=== PATIENT | male | born 1985 | race Two or more races ===

== ENCOUNTER 2018-08-14 11:19 | Day surgery (SDC) | payer OTHER ==
[2018-08-14] MEDS: CEFAZOLIN 2 GM/50 ML (PMX) 50 ML IVPB (07:00)
[2018-08-14] MEDS: SOD CHLORIDE 0.9% 1,000 ML IV ×2 (12:05→14:40)
[2018-08-14 12:19] LABS: ADD MAN DIFF? NO
[2018-08-14 12:20] LABS: WHITE BLOOD COUNT 9.5 10^3/ul (4.8-10.8)
[2018-08-14 12:20] LABS: BASOPHIL # 0.1 10^3/ul (0.0-0.1); BASOPHILS % 0.8 % (0.0-2.0); EOSINOPHILS # 0.2 10^3/ul (0.0-0.5); EOSINOPHILS % 2.2 % (0.0-7.0); HEMATOCRIT 45.7 % (42.0-52.0); HEMOGLOBIN 16.1 g/dl (14.0-18.0); LYMPHOCYTES # 2.8 10^3/ul (0.8-2.9); LYMPHOCYTES % 28.9 % (15.0-51.0); MEAN CORPUSCULAR HGB CONC 35.2 g/dl (32.0-37.0); MEAN CORPUSCULAR VOLUME 87.9 fl (82.0-101.0); MEAN PLATELET VOLUME 9.2 fl (7.4-10.4); MONOCYTE # 0.5 10^3/ul (0.3-0.9); NEUTROPHILS % 62.8 % (39.0-77.0); PLATELET COUNT 234 10^3/UL (140-415); RED CELL DISTRIBUTION WIDTH 12.7 % (11.5-14.5)
[2018-08-14 12:40] LABS: INR 0.97; PARTIAL THROMBOPLASTIN TIME 26.4 Sec (23.0-35.0)
[2018-08-14 12:43] LABS: ALANINE AMINOTRANSFERASE 35 IU/L (13-69); ALBUMIN 4.5 g/dl (3.3-4.9); ALBUMIN/GLOBULIN RATIO 1.32; ALKALINE PHOSPHATASE 61 IU/L (42-121); ANION GAP 9 (5-13); ASPARTATE AMINO TRANSFERASE 38 IU/L (15-46); BILIRUBIN,INDIRECT 0.8 mg/dl (0-1.1); BILIRUBIN,TOTAL 0.8 mg/dl (0.2-1.3); BLOOD UREA NITROGEN 10 mg/dl (7-20); CARBON DIOXIDE 27 mmol/L (21-31); CHLORIDE 107 mmol/L (97-110); CREATININE 0.79 mg/dl (0.61-1.24); Estimated GFR > 60 mL/min (>60); GLUCOSE 95 mg/dl (70-220); POTASSIUM 4.4 mmol/L (3.5-5.1); SODIUM 143 mmol/L (135-144); TOTAL PROTEIN 7.9 g/dl (6.1-8.1)
[2018-08-14] MEDS ORDERED: SUCCINYLCHOLINE CHLORIDE 100 MG/5 ML SYG IV (13:10)
[2018-08-14] MEDS ORDERED: LIDOCAINE 2% (SDV) 5 ML INJ (13:10)
[2018-08-14] MEDS ORDERED: ROCURONIUM 50 MG INJ (13:10)
[2018-08-14] MEDS ORDERED: PROPOFOL 20 ML (13:11)
[2018-08-14] MEDS ORDERED: FENTAnyl 50 MCG/ML VIAL (13:11)
[2018-08-14] MEDS ORDERED: DEXAMETHASONE 4 MG/ML 5 ML INJ (13:11)
[2018-08-14] MEDS ORDERED: MIDAZOLAM 1 MG/ML 2 ML INJ (13:11)
[2018-08-14] MEDS ORDERED: SUGAMMADEX SODIUM 200 MG/2 ML VIAL IV (13:11)
[2018-08-14] MEDS ORDERED: ONDANSETRON 4 MG INJ (13:11)
[2018-08-14] MEDS: BUPIVACAINE 0.25%/EPI (SDV) 30 ML INJ (13:41)
[2018-08-14] MEDS ORDERED: HYDROmorphONE 1 MG/5 ML IV SYRINGE IV (14:00)
[2018-08-14] MEDS ORDERED: DIPHENHYDRAMINE 50 MG INJ IV (14:00)
[2018-08-14] MEDS ORDERED: ONDANSETRON 4 MG INJ IV ×2 (14:00→14:30)
[2018-08-14] MEDS ORDERED: IBUPROFEN 600 MG TAB PO (14:30)
[2018-08-14] MEDS ORDERED: HYDROCODONE/APAP (5/325) TAB PO ×2 (14:30)
[2018-08-14] MEDS ORDERED: KETOROLAC 30 MG INJ IV (14:30)
[2018-08-14] MEDS ORDERED: morphine 2 MG INJ IV (14:30)
[2018-08-14] MEDS: HYDROmorphONE 1 MG/5 ML IV SYRINGE IV ×2 (14:46→14:52)
[2018-08-14] MEDS: MEPERIDINE 25 MG INJ IV (15:00)
== END 2018-08-14 16:46 | disposition home or self-care (01) ==
LOC: SDS 11:19
DX: K61.0 Anal abscess (principal)
CPT/HCPCS: 46270; 80053; 85025; 85610; 85730

== ENCOUNTER 2018-10-06 08:47 | Day surgery (SDC) | payer OTHER ==
[2018-10-06] MEDS ORDERED: SUCCINYLCHOLINE CHLORIDE 100 MG/5 ML SYG IV (10:35)
[2018-10-06] MEDS ORDERED: DESFLURANE 15 MIN (10:35)
[2018-10-06] MEDS ORDERED: PROPOFOL 20 ML (10:35)
[2018-10-06] MEDS ORDERED: MIDAZOLAM 1 MG/ML 2 ML INJ (10:35)
[2018-10-06] MEDS ORDERED: CEFAZOLIN 1 GM INJ (10:36)
[2018-10-06] MEDS ORDERED: ROCURONIUM 50 MG INJ (10:36)
[2018-10-06] MEDS ORDERED: ONDANSETRON 4 MG INJ (10:36)
[2018-10-06] MEDS ORDERED: METOCLOPRAMIDE 10 MG INJ (10:36)
[2018-10-06] MEDS ORDERED: FENTAnyl 50 MCG/ML VIAL (10:39)
[2018-10-06 10:45] LABS: ADD MAN DIFF? NO
[2018-10-06 10:49] LABS: WHITE BLOOD COUNT 6.9 10^3/ul (4.8-10.8)
[2018-10-06 10:49] LABS: BASOPHIL # 0.1 10^3/ul (0.0-0.1); BASOPHILS % 0.9 % (0.0-2.0); EOSINOPHILS # 0.3 10^3/ul (0.0-0.5); EOSINOPHILS % 3.9 % (0.0-7.0); HEMATOCRIT 44.3 % (42.0-52.0); HEMOGLOBIN 15.3 g/dl (14.0-18.0); LYMPHOCYTES # 2.4 10^3/ul (0.8-2.9); LYMPHOCYTES % 34.5 % (15.0-51.0); MEAN CORPUSCULAR HEMOGLOBIN 30.3 pg (29.0-33.0); MEAN CORPUSCULAR HGB CONC 34.5 g/dl (32.0-37.0); MEAN CORPUSCULAR VOLUME 87.7 fl (82.0-101.0); MEAN PLATELET VOLUME 9.3 fl (7.4-10.4); MONOCYTE # 0.5 10^3/ul (0.3-0.9); MONOCYTES % 7.1 % (0.0-11.0); NEUTROPHIL # 3.7 10^3/ul (1.6-7.5); NEUTROPHILS % 53.3 % (39.0-77.0); PLATELET COUNT 225 10^3/UL (140-415); RED BLOOD COUNT 5.05 10^6/ul (4.70-6.10); RED CELL DISTRIBUTION WIDTH 12.7 % (11.5-14.5)
[2018-10-06 10:50] LABS: INR 0.98; PROTIME 13.1 Sec (11.9-14.9)
[2018-10-06 10:52] LABS: ALANINE AMINOTRANSFERASE 30 IU/L (13-69); ALBUMIN 4.3 g/dl (3.3-4.9); ALKALINE PHOSPHATASE 51 IU/L (42-121); ANION GAP 8 (5-13); ASPARTATE AMINO TRANSFERASE 44 IU/L (15-46); BILIRUBIN,INDIRECT 0.8 mg/dl (0-1.1); BILIRUBIN,TOTAL 0.8 mg/dl (0.2-1.3); BLOOD UREA NITROGEN 12 mg/dl (7-20); CALCIUM 9.1 mg/dl (8.4-10.2); CARBON DIOXIDE 28 mmol/L (21-31); CHLORIDE 108 mmol/L (97-110); CREATININE 0.77 mg/dl (0.61-1.24); Estimated GFR > 60 mL/min (>60); GLUCOSE 98 mg/dl (70-220); POTASSIUM 4.1 mmol/L (3.5-5.1); SODIUM 144 mmol/L (135-144); TOTAL PROTEIN 7.6 g/dl (6.1-8.1)
[2018-10-06] MEDS ORDERED: CEFAZOLIN 1 GM/50 ML (PMX) 50 ML IVPB (11:00)
[2018-10-06] MEDS ORDERED: SOD CHLORIDE 0.9% 1,000 ML IV (11:00)
[2018-10-06] MEDS ORDERED: NEOSTIGMINE 3 MG/3 ML SYRINGE (11:11)
[2018-10-06] MEDS ORDERED: GLYCOPYRROLATE 0.4 MG INJ (11:11)
[2018-10-06] MEDS ORDERED: DIPHENHYDRAMINE 50 MG INJ IV (11:30)
[2018-10-06] MEDS ORDERED: ONDANSETRON 4 MG INJ IV (11:30)
[2018-10-06] MEDS ORDERED: OXYCODONE/ACETAMINOPHEN (5/325) TAB PO (11:30)
[2018-10-06] MEDS ORDERED: FENTAnyl 50 MCG/ML VIAL IV ×3 (11:30)
[2018-10-06] MEDS ORDERED: HYDROmorphONE 1 MG/5 ML IV SYRINGE IV ×3 (11:30)
[2018-10-06] MEDS ORDERED: MEPERIDINE 25 MG INJ IV (11:30)
[2018-10-06] MEDS ORDERED: BUPIVACAINE 0.25%/EPI (SDV) 30 ML INJ (11:32)
[2018-10-06] MEDS: OXYCODONE/ACETAMINOPHEN (5/325) TAB PO (12:59)
[2018-10-06] MEDS: HYDROGEN PEROXIDE 118 ML (14:42)
[2018-10-06] MEDS: BUPIVACAINE 0.5%/EPI (SDV) 30 ML INJ (14:42)
== END 2018-10-06 13:37 | disposition home or self-care (01) ==
LOC: SDS 08:47
DX: K60.3 Anal fistula (principal)
CPT/HCPCS: 46020; 80053; 85025; 85610; 85730

== ENCOUNTER 2018-11-27 09:54 | Day surgery (SDC) | payer OTHER ==
[~2018-11-27 09:54] MED LIST: CEFAZOLIN 1 GM/50 ML (PMX) 50 ML IVPB; SOD CHLORIDE 0.9% 1,000 ML IV
[2018-11-27] MEDS: SOD CHLORIDE 0.9% 1,000 ML IV (11:35)
[2018-11-27] MEDS ORDERED: ROCURONIUM 50 MG INJ (13:58)
[2018-11-27] MEDS ORDERED: CEFAZOLIN 1 GM INJ (13:58)
[2018-11-27] MEDS ORDERED: MIDAZOLAM 1 MG/ML 2 ML INJ (13:58)
[2018-11-27] MEDS ORDERED: PROPOFOL 20 ML (13:58)
[2018-11-27] MEDS ORDERED: FENTAnyl 50 MCG/ML VIAL (13:58)
[2018-11-27] MEDS ORDERED: EPHEDrine 25 MG/5 ML SYG IV (14:00)
[2018-11-27] MEDS ORDERED: DIPHENHYDRAMINE 50 MG INJ IV (14:00)
[2018-11-27] MEDS ORDERED: OXYCODONE/ACETAMINOPHEN (5/325) TAB PO ×2 (14:00)
[2018-11-27] MEDS ORDERED: FENTAnyl 50 MCG/ML VIAL IV ×3 (14:00)
[2018-11-27] MEDS ORDERED: ONDANSETRON 4 MG INJ IV (14:00)
[2018-11-27] MEDS ORDERED: HYDROmorphONE 1 MG/5 ML IV SYRINGE IV ×3 (14:00)
[2018-11-27] MEDS ORDERED: METOCLOPRAMIDE 10 MG INJ IV (14:00)
[2018-11-27] MEDS ORDERED: MEPERIDINE 25 MG INJ IV (14:00)
[2018-11-27] MEDS ORDERED: BUPIVACAINE 0.25%/EPI (SDV) 10 ML INJ (14:33)
[2018-11-27] MEDS ORDERED: ONDANSETRON 4 MG INJ (14:35)
[2018-11-27] MEDS ORDERED: KETOROLAC 30 MG INJ (14:36)
[2018-11-27] MEDS ORDERED: DEXAMETHASONE 4 MG/ML 5 ML INJ (14:36)
[2018-11-27] MEDS ORDERED: SUGAMMADEX SODIUM 200 MG/2 ML VIAL IV (14:36)
[2018-11-27] MEDS ORDERED: METOCLOPRAMIDE 10 MG INJ (14:36)
== END 2018-11-27 16:55 | disposition home or self-care (01) ==
LOC: SDS 09:54
DX: K60.3 Anal fistula (principal)
CPT/HCPCS: 46270